=== PATIENT | female | born 1955 | race Caucasian/White ===

== ENCOUNTER 2024-01-25 04:33 | Inpatient (IN) | payer MEDICARE, SELFPAY ==
[2024-01-25] VITALS (14 sets, daily range): BP systolic 145–197; BP diastolic 68–94; PULSE 73–99; RESP 12–21; TEMP 36.3–37.2; O2SAT 87–96; BMI 24.9; BMI 25.2
--- NOTE | ~2024-01-25 | XR_ITS ---
EXAMINATION: XR CHEST CLINICAL INFORMATION: Shortness of breath. COMPARISON: None available. TECHNIQUE: Frontal view of the chest was obtained. FINDINGS: The cardiomediastinal silhouette is stable. There is no focal lung consolidation or pleural effusion. The bony structures and soft tissues are unremarkable. XR/XR chest 1V IMPRESSION: No acute cardiopulmonary disease.
--- NOTE | 2024-01-25 04:53 | ECG_ITS ---
Test Reason : SOB Blood Pressure : / mmHG Vent. Rate : 088 BPM Atrial Rate : 088 BPM P-R Int : 148 ms QRS Dur : 090 ms QT Int : 514 ms P-R-T Axes : 078 014 045 degrees QTc Int : 621 ms Normal sinus rhythm ST depression consider ischemia Abnormal ECG No previous ECGs available Referred By: Generic ED Physician Electronically Signed By:ADRIA PRIEST MD
--- NOTE | 2024-01-25 04:56 | ED_ITS ---
HPI - Asthma General Chief Complaint: Asthma Stated Complaint: Asthma Attack Time Seen by Provider: 01/25/24 04:55 Source: patient Mode of arrival: ambulatory Limitations: no limitations History of Present Illness ED Provider: dr azul HPI Narrative: Patient history of asthma comes here for increased shortness of breath chills for last 5 days using her inhaler without much relief on arrival patient is saturating 87% at room air improved to 94% on 4 L patient with coughing with mucopurulent phlegm low-grade fever off with chills clear nasal discharge no chest pain Related Data Previous Rx's ?Medication ?Instructions ?Recorded albuterol sulfate 90 mcg/actuation 2 puff inhalation Q4-6H PRN 01/25/24 aerosol inhaler (ProAir HFA) shortness of breath or wheezing #8.5 grams benzonatate 200 mg capsule 200 mg PO TID PRN cough #30 caps 01/25/24 prednisone 20 mg tablet 40 mg (2 x 20 mg) PO DAILY #10 tabs 01/25/24 Allergies Allergy/AdvReac Type Severity Reaction Status Date / Time Seasonal Allergies Allergy Shortness Verified 01/25/24 04:47 of Breath Review of Systems 2 Review of Systems: Yes all other systems are reviewed and are negative PMFSH Social History Social History Smoked in Last 30 Days: No Use of substances other than those prescribed or required for medical reasons: Yes Substance Use Type: Marijuana Substance Use Frequency: Socially Advance Directives: No Do you have a plan to hurt others: No Plan Physical Exam 2 Vital Signs: Vital Signs: Last Vital Signs Temp 98.9 F 01/25/24 04:45 Pulse 88 01/25/24 06:03 Resp 15 01/25/24 06:03 BP 173/76 H 01/25/24 06:03 Pulse Ox 93 01/25/24 06:03 O2 Del Method Nasal Cannula 01/25/24 06:03 O2 Flow Rate 4 01/25/24 06:03 BMI result Body Mass Index 24.9 Appearance: Alert. Oriented X3. Moderate respiratory distress Eyes: No pallor with icterus ENT: Pharynx normal. Oral Mucosa moist Neck: Normal inspection. Neck supple. CVS: Normal heart rate and rhythm. Pulses normal. Respiratory: Moderate respiratory distress with wheezing bilateral. Equal air entry bilateral, no crackles Abdomen: Soft and nontender. Bowel sounds are present, no mass palpable, no CVA tenderness Skin: Skin warm and dry. Normal skin color. Normal skin turgor. Extremities: No lower extremity edema. No calf tenderness Neuro: Oriented X 3. No motor deficit. Medications Administered Generic Name Dose Route Start Last Admin Trade Name Freq PRN Reason Stop Dose Admin Magnesium Sulfate 2 gm in 50 mls @ 25 mls/hr 01/25/24 05:36 01/25/24 05:47 Magnesium Sulfate/H2o IV 01/25/24 07:35 25 mls/hr ONCE ONE Administration Discontinued Medications Generic Name Dose Route Start Last Admin Trade Name Freq PRN Reason Stop Dose Admin Amlodipine Besylate 5 mg 01/25/24 05:28 01/25/24 05:32 Amlodipine Besylate 5 Mg Tablet PO 01/25/24 05:29 5 mg ONCE ONE Administration Protocol Albuterol Sulfate 2.5 mg/ 0 mg 01/25/24 05:12 01/25/24 05:29 Albuterol/Ipratropium 3 ml INHALE 01/25/24 05:13 5 dose ONCE ONE Administration Lisinopril 40 mg 01/25/24 05:28 01/25/24 05:32 Lisinopril 40 Mg Tablet PO 01/25/24 05:29 40 mg ONCE ONE Administration Protocol Methylprednisolone Sodium Succinate 125 mg 01/25/24 05:12 01/25/24 05:21 Methylprednisolone Sod Succ 125 Mg/2 Ml Vial IVPUSH 01/25/24 05:13 125 mg ONCE ONE Administration Potassium Bicarbonate 25 meq 01/25/24 05:36 01/25/24 05:47 Potassium Bicarbonate/Cit Ac 25 Meq Tablet.Eff PO 01/25/24 05:37 25 meq ONCE ONE Administration Medical Decision Making Medical Decision Making [facility] Narrative: Patient with asthma with allergies came hypoxic with wheezing improved after nebulizing treatment saturating 92% at room air will give her another treatment. Chest x-ray negative for infiltrate/pneumonia/pneumothorax no findings of CHF COVID influenza negative will give another breathing treatment likely patient will go home Dr. Anderson to dispo Differential Diagnosis Differential Diagnoses: The differential diagnosis associated with the presentation includes Asthma/bronchitis/pneumonia/pneumothorax/CHF Admission/Observation Consideration of admission/observation: Escalation of care including admission/observation considered Lab Data [facility] Lab Attestation statement: I reviewed the patient's lab results. 01/25/24 05:03 01/25/24 05:03 Labs: Lab Results 01/25/24 01/25/24 Range/Units 05:03 05:08 WBC 5.6 (4.8-10.8) X10*3/uL RBC 4.99 (4.20-5.50) X10*6/uL Hgb 14.7 (12.0-16.0) g/dl Hct 43.6 (37.0-47.0) % MCV 87.4 (80.0-98.0) fL MCH 29.5 (27.0-33.0) pg MCHC 33.7 (31.0-35.0) g/dl RDW 13.5 (11.0-16.0) % Plt Count 186 (160-400) X10*3/uL MPV 10.9 (9.4-12.3) fL Immature Gran % (Auto) 0.4 (0.0-0.4) % Neut % (Auto) 72.1 (45-73) % Lymph % (Auto) 16.8 L (20-40) % [place] % (Auto) 9.4 (2-11) % Eos % (Auto) 0.9 (0-4) % Baso % (Auto) 0.4 (0-2) % Lymph # (Auto) 1.0 L (1.2-4.9) X10*3/uL [place] # (Auto) 0.5 (0.1-1.2) X10*3/uL Eos # (Auto) 0.1 (0.0-0.4) X10*3/uL Baso # (Auto) 0.0 (0.0-0.2) X10*3/uL Abs Immat Gran (auto) 0.02 (0.00-0.03) X10*3/uL Absolute Neuts (auto) 4.1 (2.0-8.3) x10*3/uL Absolute Nucleated RBC 0.000 (0.0-0.012) X10*3/uL Nucleated RBC % (auto) 0.0 (0.0-0.2) /100WBC Sodium 143 (135-145) mmol/L Potassium 3.0 L (3.3-5.1) mmol/L Chloride 104 (96-108) mmol/L Carbon Dioxide 22 (22-29) mmol/L Anion Gap 20 (12-20) BUN 15 (9-16) mg/dL Creatinine 0.68 (0.5-1.4) mg/dL Estim Creat Clear Calc 76.9 Estimated GFR > 60 Random Glucose 164 H (60-115) mg/dL Calcium 9.5 (8.4-10.2) mg/dL Total Bilirubin 0.8 (0.0-1.0) mg/dL AST 23 (5-31) U/L ALT 24 (0-31) U/L Alkaline Phosphatase 105 (39-117) U/L Troponin I High Sens < 2.7 (<3.5-17.0) ng/L B-Natriuretic Peptide 48 (<100) pg/mL Total Protein 7.4 (6.5-8.0) g/dL Albumin 4.3 (3.5-5.0) g/dL COVID-19 (RIAN) Negative (Negative) COVID-19 Clin Com See Note Influenza Type A (MARLI) Negative (Negative) Influenza Type B (MARLI) Negative (Negative) Influenza A & B Note See Note Independent Interpretation I performed an independent interpretation of an: EKG and Plain X-Ray Interpretation: Normal sinus rhythm heart rate 88 beats per minute normal interval normal axis LVH no acute STT wave changes no acute ischemia Radiology Impression Discussion of test interpretation with radiology: I have reviewed the radiologist's reading. Discharge Plan Discharge Clinical Impression: Asthma with acute exacerbation, Acute hypoxemic respiratory failure Patient Disposition: Still a Patient Instructions: Asthma (ED), Hypoxia (ED) Additional Instructions: Take prednisone as prescribed continue to use your inhalers Report to the ER if not better Prescriptions: New benzonatate 200 mg capsule 200 mg PO TID PRN (Reason: cough) Qty: 30 0RF prednisone 20 mg tablet 40 mg PO DAILY Qty: 10 0RF albuterol sulfate [ProAir HFA] 90 mcg/actuation HFA aerosol inhaler 2 puff inhalation Q4-6H PRN (Reason: shortness of breath or wheezing) Qty: 8.5 0RF Print Language: Czech
[2024-01-25 05:09] LABS: MANUAL DIFF FLAG NO
[2024-01-25 05:18] LABS: Basophils Percent Auto 0.4 % (0-2); Eosinophils Absolute Auto 0.1 X10*3/uL (0.0-0.4); Eosinophils Percent Auto 0.9 % (0-4); Hematocrit 43.6 % (37.0-47.0); Hemoglobin 14.7 g/dl (12.0-16.0); Imm Gran Abs Auto 0.02 X10*3/uL (0.00-0.03); Imm Gran Pct Auto 0.4 % (0.0-0.4); Lymphocytes Percent Auto 16.8 % (20-40); Mean Corpuscular HGB Conc 33.7 g/dl (31.0-35.0); Mean Corpuscular Hemoglobin 29.5 pg (27.0-33.0); Mean Corpuscular Volume 87.4 fL (80.0-98.0); Mean Platelet Volume 10.9 fL (9.4-12.3); Monocytes Absolute Auto 0.5 X10*3/uL (0.1-1.2); Monocytes Percent Auto 9.4 % (2-11); Neutrophils Absolute Auto 4.1 x10*3/uL (2.0-8.3); Neutrophils Percent Auto 72.1 % (45-73); Platelet Count 186 X10*3/uL (160-400); Red Blood Count 4.99 X10*6/uL (4.20-5.50); Red Cell Distribution Width 13.5 % (11.0-16.0); White Blood Count 5.6 X10*3/uL (4.8-10.8)
[2024-01-25] MEDS: methylPREDNISolone Sod Succ 125 MG/2 ML VIAL IVPUSH (05:21)
[2024-01-25 05:27] LABS: Alanine Aminotransferase 24 U/L (0-31); Albumin Level 4.3 g/dL (3.5-5.0); Alkaline Phosphatase 105 U/L (39-117); Anion Gap 20 (12-20); Aspartate Amino Transferase 23 U/L (5-31); Bilirubin Total 0.8 mg/dL (0.0-1.0); Blood Urea Nitrogen 15 mg/dL (9-16); Calcium 9.5 mg/dL (8.4-10.2); Carbon Dioxide 22 mmol/L (22-29); Chloride 104 mmol/L (96-108); Creatinine Clr Calc Pharmacy 76.9; Estimated Glomerular Filt Rate > 60; Glucose Random 164 mg/dL (60-115); Sodium 143 mmol/L (135-145); Total Protein 7.4 g/dL (6.5-8.0)
[2024-01-25] MEDS: Albuterol Sulfate 2.5 MG, Albuterol/Iprat 2.5/0.5MG 3 ML 3 ML INHALE (05:29)
[2024-01-25 05:31] LABS: COVID-19 Test Negative (Negative); IDNOW Serial# 08D9AD1C; IDNOW Serial# 152EDE1D; Influenza A Negative (Negative); Influenza B2 Negative (Negative)
[2024-01-25] MEDS: lisinopriL 40 MG TABLET PO (05:32)
[2024-01-25] MEDS: amLODIPine Besylate 5 MG TABLET PO (05:32)
--- NOTE | 2024-01-25 05:37 | PC.NURSE ---
Patient presents to ED for evaluation of worsening shortness of breath, chill, intermittent productive cough of yellowish phlegm since 01/20/2024. Patient reports history of Asthma. She has been taking inhaler with no relief in symptoms. At ED O2 Sat 87% RA, O2 applied at 4 LPM NC with improvement noted, O2 Sat 94%, BP 184/90. Patient changed into a hospital attire, 20 G IV line established in R AC, labs drawn, swabs for COVID and Influenza complete. Patient placed on nurse monitoring, normal sinus rhythm, HR 80-90. BP 184-190/88-90. Dr. Jaramillo made aware. Patient medicated with Amlodipine 10 mg PO and Lisinopril 40mg PO. Patient medicated per NOV. RT at bedside. Call mckeon in patient's reach, plan of care ongoing.
[2024-01-25 05:39] LABS: B Type Natriuretic Peptide 48 pg/mL (<100); Troponin-I High Sensitivity < 2.7 ng/L (<3.5-17.0)
[2024-01-25] MEDS: Magnesium Sulfate/H2O 2 GM/50 ML PIGGYBACK IV (05:47)
[2024-01-25] MEDS: Potassium Bicarbonate/Cit AC 25 MEQ TABLET.EFF PO (05:47)
[2024-01-25] MEDS: Albuterol Sulfate (0.083%) 2.5 MG/3 ML VIAL.NEB 5 MG INHALE (07:20)
[2024-01-25 09:24] LABS: VBG Base Excess 1.5 mmol/L; VBG HCO3 25 mmol/L (22-26); VBG pCO2 38 mmHg; VBG pH 7.42 (7.32-7.43); VBG pO2 61 mmHg
[2024-01-25 09:25] LABS: Venous Blood Gas Refer to POC result
[2024-01-25] MEDS: Potassium Chloride/H20 10 MEQ/100 ML PIGGYBACK 100 MEQ IV ×2 (09:33→11:03)
--- NOTE | 2024-01-25 10:08 | PHA.MEDREC ---
Pharmacy Consult ? Medication Reconciliation Pharmacy has completed the medication reconciliation.
[2024-01-25 10:50] LABS: Adenovirus PCR Not Detected (Not Detect.); Bordetella parapertussis PCR Not Detected (Not Detect.); Bordetella pertussis PCR Not Detected (Not Detect.); Chlamydia pneumoniae PCR Not Detected (Not Detect.); Coronavirus 229E PCR Not Detected (Not Detect.); Coronavirus HKU1 PCR Not Detected (Not Detect.); Coronavirus NL63 PCR Not Detected (Not Detect.); Coronavirus OC43 PCR Not Detected (Not Detect.); Human metapneumovirus PCR Not Detected (Not Detect.); Influenza A PCR Not Detected (Not Detect.); Influenza B PCR Not Detected (Not Detect.); Mycoplasma pneumoniae PCR Not Detected (Not Detect.); Parainfluenza 1 PCR Not Detected (Not Detect.); Parainfluenza 2 PCR Not Detected (Not Detect.); Parainfluenza 3 PCR Detected (Not Detect.); Parainfluenza 4 PCR Not Detected (Not Detect.); RSV PCR Not Detected (Not Detect.); Rhino/Enterovirus PCR Not Detected (Not Detect.)
--- NOTE | 2024-01-25 11:30 | P.HPHOSP_ITS ---
History of Present Illness Date of Service: 01/25/24 Chief Complaint: Shortness of breath 68-year-old female patient with past medical history significant for mild intermittent asthma, history of hypertension presented to [facility] due to symptoms of shortness of breath that started 5 days ago, initially patient developed symptoms of shortness of breath associated with runny nose, sneezing, later she developed chest tightness ,cough productive of light yellow sputum, associated with chills, she took her home inhalers with no relief in symptoms, therefore presented to emergency room where she was noted to have finger oximetry 87% on room air improved to 94% on 4 L patient treated aggressively in the emergency room with IV Solu Medrol, albuterol updraft, IV magnesium but since patient continued to be hypoxic and symptomatic therefore being admitted for continued monitoring and treatment of acute asthma exacerbation, chest x-ray showed no acute cardiopulmonary disease, influenza, COVID and RSV negative. Review of Systems 2 Review of Systems: General no headache, no dizziness , CVS no chest pain, no palpitation. Respiratory shortness of breath and cough Gastrointestinal no nausea no vomiting, no abdominal pain no urgency no frequency Skin no rash Musculoskeletal no pain All other system reviewed and negative PMFSH Pertinent family history: Father at age 62 due due to myocardial infarction Mother at age 87 due to old age No family history of breast cancer or colon cancer Social History Smoked in Last 30 Days: No Use of substances other than those prescribed or required for medical reasons: Yes Substance Use Type: Marijuana Substance Use Frequency: Socially Advance Directives: No Do you have a plan to hurt others: No Plan Meds Allergies Allergy/AdvReac Type Severity Reaction Status Date / Time Seasonal Allergies Allergy Shortness Verified 01/25/24 04:47 of Breath Active Medications: Current Medications Acetaminophen (Acetaminophen 325 Mg Tablet) 650 mg PO Q6H PRN PRN Reason: Pain, Mild (Pain Scale 1-3) Al Hydroxide/Mg Hydroxide (Magnesium Hydrox/Alum Hydrox 30 Ml Oral.Susp) 30 ml PO Q4H PRN PRN Reason: Heartburn/Nausea Albuterol/Ipratropium (Albuterol/Iprat 2.5/0.5mg 3 Ml Ampul.Neb) 3 ml INHALE RQ4H WHILE AWAKE LAMBERT Amlodipine Besylate (Amlodipine Besylate 5 Mg Tablet) 5 mg PO DAILY COUNT INCLUDES THE [facility]; Protocol Atorvastatin Calcium (Atorvastatin Calcium 10 Mg Tablet) 10 mg PO BEDTIME COUNT INCLUDES THE [facility] Docusate Sodium (Docusate Sodium 100 Mg Capsule) 100 mg PO DAILY PRN PRN Reason: Constipation Guaifenesin/Dextromethorphan (Guaifenesin Dm 100/10/5 Ml 5 Ml Syrup) 10 ml PO Q6H PRN PRN Reason: Cough Lisinopril (Lisinopril 40 Mg Tablet) 40 mg PO DAILY COUNT INCLUDES THE [facility]; Protocol Loratadine (Loratadine 10 Mg Tablet) 10 mg PO DAILY COUNT INCLUDES THE [facility] Melatonin (Melatonin 3 Mg Tablet) 3 mg PO BEDTIME PRN PRN Reason: Insomnia Methylprednisolone Sodium Succinate (Methylprednisolone Sod Succ 40 Mg/Ml Vial) 40 mg IVPUSH Q12H LAMBERT Ondansetron HCl (Ondansetron Hcl 4 Mg/2 Ml Vial) 4 mg IVPUSH Q8H PRN PRN Reason: Nausea and Vomiting Sodium Chloride (0.9 % Sodium Chloride Flush 3 Ml Syringe) 3 ml IVFLUSH QSHIFT COUNT INCLUDES THE [facility] Vitamin D (Cholecalciferol (Vitamin D3) 25 Mcg Tablet) 50 mcg PO DAILY COUNT INCLUDES THE [facility] Home Medications ?Medication ?Instructions ?Recorded ?Confirmed ?Last Taken ?Type amlodipine 5 mg tablet 5 mg PO DAILY 01/25/24 01/25/24 01/24/24 History cholecalciferol (vitamin D3) 50 50 mcg PO DAILY 01/25/24 01/25/24 01/24/24 History mcg (2,000 unit) tablet (Vitamin D3) lisinopril 5 mg tablet 40 mg PO DAILY 01/25/24 01/25/24 01/24/24 History rosuvastatin 5 mg tablet 5 mg PO BEDTIME 01/25/24 01/25/24 01/24/24 History Physical Exam 2 Vital Signs and Narrative: Vital Signs: Last Vital Signs Temp 98.0 F 01/25/24 10:47 Pulse 78 01/25/24 10:47 Resp 14 01/25/24 10:47 BP 155/78 H 01/25/24 10:47 Pulse Ox 92 01/25/24 10:47 O2 Del Method Nasal Cannula 01/25/24 10:47 O2 Flow Rate 2 01/25/24 10:47 BMI result Body Mass Index 24.9 Const: Other: General awake alert x3, in no acute distress. Anicteric sclera Neck supple no JVD. CVS regular rate rhythm, Respiratory lungs bilateral expiratory wheeze, no use of accessory muscles Gastrointestinal abdomen soft, non tender, bowel sounds audible, Extremities no edema. Neuro non focal Skin no rash Psych appropriate affect Results Labs 01/25/24 05:03 01/25/24 05:03 Labs: Laboratory Results - last 24 hr 01/25/24 01/25/24 01/25/24 05:03 05:08 09:16 MCV 87.4 MCH 29.5 MCHC 33.7 RDW 13.5 Plt Count 186 MPV 10.9 Immature Gran % (Auto) 0.4 Neut % (Auto) 72.1 Lymph % (Auto) 16.8 L Sargent % (Auto) 9.4 Eos % (Auto) 0.9 Baso % (Auto) 0.4 Lymph # (Auto) 1.0 L S[place]ent # (Auto) 0.5 Eos # (Auto) 0.1 Baso # (Auto) 0.0 Abs Immat Gran (auto) 0.02 Absolute Neuts (auto) 4.1 Absolute Nucleated RBC 0.000 Nucleated RBC % (auto) 0.0 VBG pH 7.42 VBG pCO2 38 VBG pO2 61 VBG HCO3 25 VBG O2 Saturation 92.0 VBG Base Excess 1.5 Anion Gap 20 Estim Creat Clear Calc 76.9 Estimated GFR > 60 Random Glucose 164 H Calcium 9.5 Total Bilirubin 0.8 AST 23 ALT 24 Alkaline Phosphatase 105 Troponin I High Sens < 2.7 B-Natriuretic Peptide 48 Total Protein 7.4 Albumin 4.3 COVID-19 (RIAN) Negative COVID-19 Clin Com See Note Influenza Type A (MARLI) Negative Influenza Type B (MARLI) Negative Influenza A & B Note See Note Imaging Radiologist's Impressions: Impressions Chest X-Ray 01/25/24 05:07 IMPRESSION: No acute cardiopulmonary disease. Assessment and Plan (1) Acute hypoxemic respiratory failure: Status: Acute (2) Asthma with acute exacerbation: Status: Acute (3) Acute hypokalemia: Status: Acute Plan 64-year-old female patient with past medical history significant for mild intermittent asthma presented to [facility] due to symptoms of shortness of breath and cough for 4-5 days' duration not responding to home inhalers noted to be hypoxic in ED with finger oximetry 87% Acute hypoxic respiratory failure due to acute exacerbation of mild intermittent asthma Admitted to medical floor Likely due to allergies/follow respiratory viral panel/chest x-ray negative IV Solu-Medrol/DuoNeb scheduled and as needed Cough medication/Claritin Wean oxygen as tolerated not on home O2 Hypokalemia will replete and follow labs Hypertension stable blood pressure resume home medications, follow BP Full code Lovenox for DVT prophylaxis In my clinical judgment patient need to night inpatient hospitalization for management of acute hypoxic respiratory failure due to acute exacerbation of asthma requiring IV steroids updraft and oxygen treatment can not be provided in less acute setting. Quality Stroke Does the patient have a stroke diagnosis?: No VTE Prior VTE?: No VTE Risk Level:: Medical - moderate - high VTE Device Contraindication: Treatment Not Indicated VTE Drug Contraindication: N/A - Med Ordered
[2024-01-25] MEDS: Albuterol/Iprat 2.5/0.5MG 3 ML AMPUL.NEB INHALE ×3 (11:58→18:51)
[2024-01-25 12:00] LABS: SARS-CoV-2 PCR Not Detected (Not Detect.)
--- NOTE | 2024-01-25 12:21 | PC.NURSE ---
pt states that she already took her amlodipine this morning and does not want to take it now.
[2024-01-25] MEDS: Enoxaparin Sodium 40 MG/0.4 ML SYRINGE SUBCUT (12:25)
[2024-01-25] MEDS: Potassium Chloride ER 20 MEQ TAB.ER.PRT PO (12:25)
[2024-01-25] MEDS: Loratadine 10 MG TABLET PO (12:25)
[2024-01-25] MEDS: 0.9 % Sodium Chloride Flush 3 ML SYRINGE IVFLUSH ×2 (17:04→23:25)
[2024-01-25] MEDS: methylPREDNISolone Sod Succ 40 MG/ML VIAL IVPUSH (17:04)
[2024-01-25] MEDS: Atorvastatin Calcium 10 MG TABLET PO (22:01)
[2024-01-26] VITALS (7 sets, daily range): BP systolic 164–171; BP diastolic 77; PULSE 69–86; RESP 16–18; TEMP 36–36.6; O2SAT 92–97
[2024-01-26] MEDS: methylPREDNISolone Sod Succ 40 MG/ML VIAL IVPUSH (04:01)
[2024-01-26 07:34] LABS: Anion Gap 15 (12-20); Blood Urea Nitrogen 15 mg/dL (9-16); Calcium 9.6 mg/dL (8.4-10.2); Carbon Dioxide 25 mmol/L (22-29); Chloride 106 mmol/L (96-108); Creatinine Clr Calc Pharmacy 90.3; Estimated Glomerular Filt Rate > 60; Glucose Random 128 mg/dL (60-115); Sodium 142 mmol/L (135-145)
[2024-01-26] MEDS: Albuterol/Iprat 2.5/0.5MG 3 ML AMPUL.NEB INHALE ×2 (07:51→11:30)
[2024-01-26 07:53] LABS: Potassium 4.1 mmol/L (3.3-5.1)
[2024-01-26] MEDS: amLODIPine Besylate 5 MG TABLET PO (08:11)
[2024-01-26] MEDS: 0.9 % Sodium Chloride Flush 3 ML SYRINGE IVFLUSH (08:12)
[2024-01-26] MEDS: lisinopriL 40 MG TABLET PO (08:12)
[2024-01-26] MEDS: Cholecalciferol (Vitamin D3) 25 MCG TABLET 50 MCG PO (08:12)
--- NOTE | 2024-01-26 09:51 | MHC.CM.PN ---
Addendum entered by Renetta Euceda 01/26/24 10:21: Patient has scheduled an appointment in the [facility] office 03/05/24. Original Note: Patient dx Asthma lives by herself. She has recently moved to [place] from [facility]. She has been given the [facility] MD ken. She plans to schedule an appointment at the [facility] office today. She is independent with all functional mobility. She is discharged today to home self care. She will self transport her car is in the lot. She declined the offer to document a HCP.
--- NOTE | 2024-01-26 11:47 | PM.DS ---
DS: Providers Provider Date of Service: 01/26/24 Date of admission: 01/25/24 11:26 Primary care physician: Sydney Physician DS: Diagnosis Discharge Diagnosis (1) Acute hypoxemic respiratory failure: Status: Acute (2) Asthma with acute exacerbation: Status: Acute (3) Acute hypokalemia: Status: Acute DS: Summary Hospital Course Hospital Course: Date of Service: 01/25/24 Chief Complaint: Shortness of breath 68-year-old female patient with past medical history significant for mild intermittent asthma, history of hypertension presented to [facility] due to symptoms of shortness of breath that started 5 days ago, initially patient developed symptoms of shortness of breath associated with runny nose, sneezing, later she developed chest tightness ,cough productive of light yellow sputum, associated with chills, she took her home inhalers with no relief in symptoms, therefore presented to emergency room where she was noted to have finger oximetry 87% on room air improved to 94% on 4 L patient treated aggressively in the emergency room with IV Solu Medrol, albuterol updraft, IV magnesium but since patient continued to be hypoxic and symptomatic therefore being admitted for continued monitoring and treatment of acute asthma exacerbation, chest x-ray showed no acute cardiopulmonary disease, influenza, COVID and RSV negative. Hospital course: 64-year-old female patient with past medical history significant for htn,mild intermittent asthma presented to [facility] due to symptoms of shortness of breath and cough for 4-5 days' duration not responding to home inhalers, noted to be hypoxic in ED with finger oximetry 87%, admitted to medical floor with a diagnosis of Acute hypoxic respiratory failure due to acute exacerbation of mild intermittent asthma, likely exacerbated by allergies, chest x-ray showed no infiltrate, treated IV steroids, DuoNeb scheduled and as needed, cough medication and Claritin, patient responded rapidly to above treatment, patient is feeling significantly better with no further hypoxia, and no shortness of breath ,respiratory viral panel returned positive for parainfluenza virus, likely contributing to asthma exacerbation, since patient is hemodynamically stable she is being discharged home on short course of prednisone, cough medication, Claritin 10 mg daily and recommend to use as needed albuterol inhaler. Hypokalemia repleted and normalized Hypertension stable blood pressure resume home medications, lisinopril 40 mg and Norvasc 5 mg , prescription sent to her pharmacy. Time Attestation Discharge Coordination Time (in mins): 35 Quality: Safe Use of Opioids Does Pt have an Active Cancer Diagnosis on the Problem List?: No Quality: Stroke Does the patient have a stroke diagnosis?: No Physical Exam Vital Signs: Vital Signs: Last Vital Signs Temp 97.1 F 01/26/24 08:00 Pulse 86 01/26/24 11:31 Resp 16 01/26/24 11:31 BP 171/77 H 01/26/24 08:12 Pulse Ox 94 01/26/24 08:00 O2 Del Method Room Air 01/26/24 08:00 O2 Flow Rate 2 01/26/24 07:34 BMI result Body Mass Index 25.2 Const: Other: General awake alert x3, in no acute distress. Anicteric sclera Neck supple no JVD. CVS regular rate rhythm, Respiratory lungs clear to auscultation, no wheeze, no use of accessory muscles Gastrointestinal abdomen soft, non tender, bowel sounds audible, Extremities no edema. Neuro non focal Skin no rash Psych appropriate affect DS: Data Data Completed and Pending Labs on day of discharge: Laboratory Results - last 24 hr 01/25/24 01/26/24 07:45 05:38 Hold Purple Top SEE NOTE Sodium 142 Potassium 4.1 D Chloride 106 Carbon Dioxide 25 Anion Gap 15 BUN 15 Creatinine 0.58 Estim Creat Clear Calc 90.3 Estimated GFR > 60 Random Glucose 128 H Calcium 9.6 Respiratory Panel [place] See Note Adenovirus (Rapid PCR) Not Detected B.pert (TEM-PCR) Not Detected B.parapertussis DNA PCR Not Detected C. pneumoniae DNA (PCR) Not Detected Coronavirus OC43 (PCR) Not Detected Coronavirus HKU1 (PCR) Not Detected Coronavirus 229E (PCR) Not Detected Coronavirus NL63 (PCR) Not Detected Human Metapneumovir PCR Not Detected Influenza A (RT-PCR) Not Detected Influenza B (RT-PCR) Not Detected M. pneumoniae (PCR) Not Detected Parainfluenza 1 (PCR) Not Detected Parainfluenza 2 (PCR) Not Detected Parainfluenza 3 (PCR) Detected A Parainfluenza 4 (PCR) Not Detected RSV (PCR) Not Detected Entero/Rhino (PCR) Not Detected SARS-CoV-2 RNA (RT-PCR) Not Detected Discharge Plan Discharge Anticipated Discharge Date/Time: 01/26/24 11:21 Patient Disposition: Home, Self-Care Discharge Diagnosis: Acute hypoxic respiratory failure due to exacerbation of mild intermittent asthma exacerbation Parainfluenza viral Referrals: [facility] [Other] - 1 Week (New PCP appointment 03/05/24) Discharge Medications: New benzonatate 200 mg capsule 200 mg PO TID PRN (Reason: cough) Qty: 30 0RF albuterol sulfate [ProAir HFA] 90 mcg/actuation HFA aerosol inhaler 2 puff inhalation Q4-6H PRN (Reason: shortness of breath or wheezing) Qty: 8.5 0RF loratadine 10 mg Tablet 10 mg PO DAILY Qty: 90 0RF prednisone 20 mg tablet 20 mg PO DAILY Qty: 5 0RF Continued cholecalciferol (vitamin D3) [Vitamin D3] 50 mcg (2,000 unit) Tablet 50 mcg PO DAILY amlodipine 5 mg Tablet 5 mg PO DAILY Qty: 90 0RF lisinopril 5 mg Tablet 40 mg PO DAILY Qty: 90 0RF rosuvastatin 5 mg Tablet 5 mg PO BEDTIME Qty: 90 0RF Discharge Orders: Discharge Order (Routine); Ordered 01/26/24 Ordered By: Sriram Mon Diet: Advance to usual diet Activity on Discharge: As tolerated Stand Alone Forms: Patient Portal Discharge page Print Language: Belarusian Activity Restrictions/Additional Instructions: Take prednisone as prescribed continue to use your inhalers Care Plan Goals: Take Claritin 1 tablet daily Use albuterol 2 puff inhaler q.4 hours with episodes of shortness of breath Take prednisone 20 mg tablet with food for 5 days Health Concerns: Hypertension/hyperlipidemia resume home medication Plan of Treatment: Follow-up with primary care physician call for appointment Assessment: As above Patient Instructions: Asthma (ED), Hypoxia (ED)
== END 2024-01-26 12:42 | disposition home or self-care (01) | DRG 202 ==
LOC: HO.ED 09:38 → HO.EDOVER 11:30 → HO.S3 22:16
PROVIDERS: Internal Medicine; Admitting Provider Hospitalist; Emergency Provider Emergency Medicine; Visit Provider Hospitalist
DX: J45.21 Mild intermittent asthma with (acute) exacerbation (principal); J96.01 Acute respiratory failure with hypoxia; E87.6 Hypokalemia; I10 Essential (primary) hypertension; B34.8 Other viral infections of unspecified site; Z20.822 Contact with and (suspected) exposure to COVID-19; Z79.899 Other long term (current) drug therapy
CPT/HCPCS: 36415; 71045; 80048; 80053; 82803; 83880; 84484; 85025; 87502; 87633; 87635; 93005; 94640; 99285; J1650; J2919; J3475; J3480

== ENCOUNTER → 2024-01-25 04:53 | Outpatient (BNV) | payer MEDICARE, SELFPAY | PROVIDERS: Admitting Provider Hospitalist; Emergency Provider Emergency Medicine; Visit Provider Internal Medicine Cardiovascular Disease | DX: R06.02 Shortness of breath (principal); R94.31 Abnormal electrocardiogram [ECG] [EKG] | CPT/HCPCS: 93010 ==

== ENCOUNTER → 2024-01-25 11:26 | Outpatient (BNV) | payer MEDICARE, SELFPAY | PROVIDERS: Admitting Provider Hospitalist; Emergency Provider Emergency Medicine; Visit Provider Hospitalist | DX: J96.01 Acute respiratory failure with hypoxia (principal); J45.901 Unspecified asthma with (acute) exacerbation; E87.6 Hypokalemia | CPT/HCPCS: 99223; 99239 ==

== ENCOUNTER 2024-03-05 09:08 | Outpatient (AMB) | payer MEDICARE, SELFPAY ==
--- NOTE | 2024-03-05 09:20 | A.OFFPC_ITS ---
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 Intake Note: New patient visit Cop Examiner Required: No Allergies Seasonal Allergies Allergy (Verified 03/05/24 09:16) Shortness of Breath Tobacco use date assessed: 03/05/24 Fall risk assessment: No Falls in past year Last assessed Fall Risk: 03/05/24 Dental Screening Dental Screen Date: 03/05/24 Did you have a dental visit in the last 12 months?: No Did you have a dental problem in the last 6 months where you did not have access to dental care?: No Was dental information given to patient?: Yes HPI HPI Comments History of Present Illness Details This is a 68-year-old female with a past medical history of hypercholesterolemia, hypertension, depression, vitamin-D deficiency and mild intermittent asthma presenting to [facility] care. She moved from [place] to [facility] last year in May. She relocated after her daughter moved here. She is working as a hospitality workers. Hypertension-treated with amlodipine 5 mg and lisinopril 40 mg daily. Blood pressure today is 134/70 in office. She had a blood pressure cuff at home. She does not drink caffeine. She follows a low-sodium, healthy diet. Nonsmoker. Hyperlipidemia-taking rosuvastatin 5 mg. Due for labs. Vitamin-D deficiency-taking daily supplement. She has never had a bone density test. This is ordered. Mild intermittent asthma-hospitalized in January at [facility] [place] when she presented with an asthma exacerbation this year. It was her 1st exacerbation in 10 years. She has never been hospitalized for asthma before. She attributed it to being sick (tested positive for parainfluenza virus) and allergy symptoms. Since then she takes Claritin 10 mg daily. States she has not required her rescue inhaler at all since this exacerbation. Denies rhinitis symptoms. Depression-patient says she has a longstanding history of this, but she is able to cope with it by talking to friends and seeking support from relatives. She says the move has been stressful and difficult. She is not interested in medication for this or referrals. Patient says she is due for her mammogram. This is ordered. She had a negative Cologuard test last year. Patient said she was a ?non vaxxer until COVID-19. She was vaccinated, and she got COVID 19, and she did not require hospitalization. She has thought about getting the pneumonia vaccine, and she receives reminders from [employer], but she has not made a decision about it yet. She has a heart murmur on exam. Patient says this has never been told this. She had an EKG done in January this year while hospitalized. She denies chest pain, shortness of breath, cough or leg swelling. ROS: Constitutional: No unexplained weight loss, fever, chills or night sweats. Eyes: No vision changes, blurry vision, double vision, eye pain, eye redness, eye discharge. ENT: No hearing loss, sneezing, congestion, runny nose or sore throat. Respiratory: No shortness of breath, cough or sputum production. Cardiovascular: No chest pain, chest pressure or chest discomfort. No palpitations or pedal edema. Gastrointestinal: No anorexia, nausea, vomiting or diarrhea. No abdominal pain or blood in stool. Neurologic: No headache, dizziness, syncope Psychiatric: see HPI Physical exam: Constitutional: Alert, in no distress. Eyes: Pupils are equal, round and reactive to light. Extraocular muscles intact. Neck: Supple, Full range of motion. No lymphadenopathy. Respiratory: Clear to auscultation. Cardiovascular: S1 S2 regular. I/ systolic murmur. No carotid bruits. Extremities: Warm and well perfused. No clubbing, cyanosis or edema. [facility] Medical History (Updated 03/05/24 @ 13:32 by ADITYA Doyle) Mild persistent asthma in adult without complication Heart murmur Vitamin D deficiency Ovarian cyst Hypercholesteremia HTN (hypertension) Asthma Pure hypercholesterolemia Essential hypertension Depression Surgical History (Updated 03/05/24 @ 13:35 by ADITYA Doyle) History of lobectomy of lung History of removal of ovarian cyst History of cholecystectomy Family History (Updated 03/05/24 @ 09:52 by Katerina Bridges CMA) Mother HTN (hypertension) Father HTN (hypertension) Diabetes Cardiovascular disease Maternal Grandmother Breast cancer Other FH: mental illness Social History (Updated 03/05/24 @ 09:24 by Katerina Bridges CMA) Household Members: None Housing: House Do you presently have visiting nurse or other home services: No Patient Tobacco Use Status: Never used Tobacco e-Cigarette/Vaping Use: Never Used Second Hand Smoke Exposure: No Substance Use Type: Marijuana service: No Current occupational status: employed Current occupation: [employer] Current occupational exposures/hazards: Yes ([employer]) Cognitive needs: No Hearing needs: No Vision needs: Yes (glasses) Questionnaire PHQ-9 Over the last 2 weeks, how often have you been bothered by any of the following problems? 1. Little interest or pleasure in doing things: not at all 2. Feeling down, depressed, or hopeless: several days 3. Trouble falling or staying asleep, or sleeping too much: several days 4. Feeling tired or having little energy: more than half the days 5. Poor appetite or overeating: several days 6. Feeling bad about yourself - or that you are a failure or have let yourself or your family down: several days 7. Trouble concentrating on things, such as reading the newspaper or watching television: not at all 8. Moving or speaking so slowly that other people could have noticed. Or the opposite - being so fidgety or restless that you have been moving around a lot more than usual: not at all 9. Thoughts that you would be better off or of hurting yourself in some way: not at all Total score: 6 Depression Screening Interpretation: Positive Depression Screening Follow-up: Declines treatment Depression Screening Done: Yes 94605 - PHQ-9 Billing: Yes Source: Developed by Drs. Dmitry Pickard, Ernestina Isabel, Ceasar Brown and colleagues, with an educational elisabeth from [employer]. Thrive Questionnaire Date Thrive assessed: 03/05/24 I am a: Patient What is your living situation today?: I have a steady place to live Within the past 12 months, did the food you bought not last and you didn't have the money to get more?: Never true Within the past 12 months, did you worry whether your food would run out before you got money to buy more?: Never true Do you have trouble paying for medicines?: No Do you have trouble getting transportation to medical appointments?: No Do you have trouble paying your heating and electricity bill?: No Do you have trouble taking care of your child, family member or friend?: No Do you have trouble with day-to-day activities such as bathing, preparing meals, shopping, managing finances, etc.?: No Are you currently unemployed and looking for a job?: No Are you interested in more education?: No Please select the resources that you would like help with: None Currently or been in a relationship where the following occur: No concerns reported THRIVE Score: 0 AUDIT C Alcohol Use Questionnaire (AUDIT-C) 1. How often do you have a drink containing alcohol?: 4 or more times a week 2. How many drinks containing alcohol do you have on a typical day when you are drinking?: 1 or 2 3. How often do you have six or more drinks on one occasion?: Never Total Score: 4 HAYDEE-7 AMB Questionnaire HAYDEE-7 Date HAYDEE - 7 assessed: 03/05/24 Feeling nervous, anxious, or on edge: 3 = Nearly every day Not being able to stop or control worryin = More than half the days Worrying too much about different things: 2 = More than half the days Trouble relaxin = Nearly every day Being so restless that it is hard to sit still: 3 = Nearly every day Becoming easily annoyed or irritable: 0 = Not at all Feeling afraid as if something awful might happen: 2 = More than half the days Total HAYDEE-7 score (0-4 normal; 5-9 mild; 10-14 moderate; 15-21 severe): 15 Source: Developed by Drs. Dmitry Pickard, Ernestina Isabel, Ceasar Brown and colleagues, with an educational elisabeth from [employer]. HAYDEE-7 Assessment Billing HAYDEE-7 Assessment Tool: HAYDEE-7 Assessment 10395 Physical exam (Primary Care) Vital Signs: Last Vital Signs Temp 98 F 03/05/24 09:25 Pulse 67 03/05/24 09:25 Resp 12 03/05/24 09:25 BP 134/70 03/05/24 09:25 Pulse Ox 95 03/05/24 09:25 Oxygen Delivery Method Room Air 03/05/24 09:25 BMI result Body Mass Index 25.6 Tobacco/Smoking Status: Tobacco use Status Tobacco use date assessed 03/05/24 03/05/24 09:30 Patient Tobacco Use Status Never used Tobacco 03/05/24 09:30 e-Cigarette/Vaping Use Never Used 03/05/24 09:30 PHQ-9: PHQ-9 Score PHQ-9: Total score 6 03/05/24 10:18 Depression Screening Interpretation: Positive Depression Screening Follow-up: Declines treatment Thrive Assessment: Date of Thrive Assessment Date Thrive assessed 03/05/24 03/05/24 09:54 Currently or been in a relationship where the following occur: No concerns reported Assessment and Plan Assessment & Plan (1) Pure hypercholesterolemia: Code(s): E78.00 - Pure hypercholesterolemia, unspecified Plan: Recommended Mediterranean diet, cardiovascular exercise and continuing rosuvastatin. Check lipid profile. (2) Essential hypertension: Code(s): I10 - Essential (primary) hypertension Plan: Patient will track home readings and bring them to her follow up visit. Blood pressure actually good for in office reading today. Continue current medications, avoidance of caffeine and low-sodium diet. (3) Depression: Code(s): F32.A - Depression, unspecified Qualifiers: Depression Type: persistent depressive disorder Qualified Code(s): F34.1 - Dysthymic disorder Plan: Patient declines medications or referral to psychologist or psychiatrist. She feels well supported. She will monitor her symptoms and contact the office as needed. (4) Heart murmur: Code(s): R01.1 - Cardiac murmur, unspecified Plan: Baseline echocardiogram ordered for evaluation. (5) Vitamin D deficiency: Code(s): E55.9 - Vitamin D deficiency, unspecified Plan: Check vitamin-D level. Continue supplement. (6) Mild persistent asthma in adult without complication: Code(s): J45.30 - Mild persistent asthma, uncomplicated Plan: Monitor for recurrent symptoms and frequency of his exacerbations. Continue Claritin 10 mg daily and albuterol 2 puffs every 4 hours as needed for coughing, wheezing and shortness of breath. Orders: Orders Basic Metabolic Panel Today E55.9 - Vitamin D deficiency, unspecified, E78.00 - Pure hypercholesterolemia, unspecified, I10 - Essential (primary) hypertension MM screening mammo BI Today Z12.31 - Encounter for screening mammogram for malignant neoplasm of breast XR DEXA axial skeleton Today N95.1 - Menopausal and female climacteric states Lipid Panel Today E55.9 - Vitamin D deficiency, unspecified, E78.00 - Pure hypercholesterolemia, unspecified, I10 - Essential (primary) hypertension Vitamin D 1,25 dihydroxy Today E55.9 - Vitamin D deficiency, unspecified, E78.00 - Pure hypercholesterolemia, unspecified, I10 - Essential (primary) hy pertension CA echo transthoracic complete Today I10 - Essential (primary) hypertension, R01.1 - Cardiac murmur, unspecified Medications: New lisinopril 40 mg PO DAILY 90 days 90 tabs 3RF Changed From amlodipine 5 mg PO DAILY 90 tabs 0RF To amlodipine 5 mg PO DAILY 90 days 90 tabs 3RF Refilled rosuvastatin 5 mg PO BEDTIME 90 tabs 3RF loratadine 10 mg PO DAILY 90 tabs 3RF Discontinued benzonatate Discontinued Reason: Doctor's Order 200 mg PO TID PRN 30 caps 0RF cough prednisone Discontinued Reason: Doctor's Order 20 mg PO DAILY 5 tabs 0RF lisinopril Discontinued Reason: Doctor's Order 40 mg (8 x 5 mg) PO DAILY 90 tabs 0RF Coding Level of Care Code New Pt Level 4 (77791) Complex EM visit Add On G2211 Diagnoses Pure hypercholesterolemia E78.00 Essential hypertension I10 Persistent depressive disorder F34.1 Depression Type: persistent depressive disorder Heart murmur R01.1 Vitamin D deficiency E55.9 Mild persistent asthma in adult without complication J45.30 Additional Codes HAYDEE-7 Assessment Billing - HAYDEE-7 Assessment Tool: HAYDEE-7 Assessment [id number] ([id number])
[2024-03-05 09:25] VITALS: BP 134/70; PULSE 67; RESP 12; TEMP 36.6; O2SAT 95; BMI 25.6
== END 2024-03-05 10:14 | disposition home or self-care (01) ==
LOC: HO.HMGFM 09:08
PROVIDERS: PCP Physician Assistant Medical; Visit Provider Physician Assistant Medical
DX: E78.00 Pure hypercholesterolemia, unspecified (principal); I10 Essential (primary) hypertension; F34.1 Dysthymic disorder; R01.1 Cardiac murmur, unspecified; E55.9 Vitamin D deficiency, unspecified; J45.30 Mild persistent asthma, uncomplicated
CPT/HCPCS: 99204; G2211

== ENCOUNTER 2024-08-05 14:29 | Outpatient (AMB) | payer MEDICARE, SELFPAY ==
--- NOTE | 2024-08-05 15:19 | MHC.PC.OV ---
Vital Signs 08/05/24 15:24 08/05/24 15:32 Height 5 ft 0.73 in Weight 161 lb 2 oz BMI 30.7 BP 152/70 H 142/62 H Blood Pressure Location Rt brachial Rt brachial Position Sitting Sitting Pulse 57 Pulse Source Pulse Oximeter Pulse Oximetry (%) 98 Oxygen Delivery Method Room Air Intake Visit Reasons: med follow up HTN Intake Note: Follow up htn. Diarrhea, vomiting for the last week. Allergies Seasonal Allergies Allergy (Verified 08/05/24 15:25) Shortness of Breath Tobacco use date assessed: 03/05/24 Dental Screening Dental Screen Date: 03/05/24 HPI HPI Comments History of Present Illness Details This is a 69-year-old female with a past medical history of hypercholesterolemia, hypertension, depression, vitamin-D deficiency and mild intermittent asthma presenting for follow up. It is her 2nd visit with me. She moved from [place] to [facility] in 05/24/2023.. She relocated after her daughter moved here. 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 Hypertension-treated with amlodipine 5 mg and lisinopril 40 mg daily. Her blood pressure today is mildly elevated. She attributes this to missing multiple days of her medications within the past week due to having this stomach bug. She is still recovering. She had a blood pressure cuff at home. She does not drink caffeine. She follows a low-sodium, healthy diet. Nonsmoker. Last week she developed fevers, chills, vomiting and diarrhea. She treated her symptoms supportively at home. She is doing better. All of the symptoms resolved. She still feels tired and is recovering, but she is doing better and denies abdominal pain. Hyperlipidemia-taking rosuvastatin 5 mg. Due for lab work. Vitamin-D deficiency-taking daily supplement. She has never had a bone density test. I ordered it at her last appointment, but she is waiting until her supplemental insurance starts in 09/2024. Mild intermittent asthma-[place] [facility] [place] presented with an asthma exacerbation this year. It was her 1st exacerbation in 10 years. She has never been hospitalized for asthma before. She attributed it to being sick (tested positive for parainfluenza virus) and allergy symptoms. Since then she takes Claritin 10 mg daily. States she has not required her rescue inhaler at all since this exacerbation. Denies rhinitis symptoms. Depression-patient says she has a longstanding history of this, but she is able to cope with it by talking to friends and seeking support from relatives. She is not interested in medication for this or referrals. Patient says she is due for her mammogram. This is ordered, but she is waiting until 2024 for insurance reasons. She had a negative Cologuard test in 2022. Patient said she was a ?non vaxxer until COVID-19. She was vaccinated, and she got COVID 19, and she did not require hospitalization. She has thought about getting the pneumonia vaccine, and she receives reminders from [employer], but she has not made a decision about it yet. She received the COVID-19 booster and flu vaccine this fall. The RSV vaccine was going to be a 300 dollars, so she is going to see if her new insurance in September covers it. She had a heart murmur on her exam in March. I ordered an echocardiogram, but she is waiting until the new year to do this for insurance. She denies chest pain, shortness of breath, cough or leg swelling. ROS: Constitutional: No unexplained weight loss, fever, chills or night sweats. Eyes: No vision changes, blurry vision, double vision, eye pain, eye redness, eye discharge. ENT: No hearing loss, sneezing, congestion, runny nose or sore throat. Respiratory: No shortness of breath, cough or sputum production. Cardiovascular: No chest pain, chest pressure or chest discomfort. No palpitations or pedal edema. Gastrointestinal: No blood in stool or abdominal pain. See HPI. Neurologic: No headache, dizziness, syncope Physical exam: Constitutional: Alert, in no distress. Eyes: Pupils are equal, round and reactive to light. Extraocular muscles intact. Neck: Supple, Full range of motion. No lymphadenopathy. Respiratory: Clear to auscultation. Cardiovascular: S1 S2 regular. I/ systolic murmur. No carotid bruits. Abdomen: Soft, nontender, no palpable masses. Normoactive bowel sounds in 4 quadrants. Extremities: Warm and well perfused. No clubbing, cyanosis or edema. [facility] Medical History (Updated 03/05/24 @ 13:32 by ADITYA Doyle) Mild persistent asthma in adult without complication Heart murmur Vitamin D deficiency Ovarian cyst Hypercholesteremia HTN (hypertension) Asthma Pure hypercholesterolemia Essential hypertension Depression Surgical History (Updated 03/05/24 @ 13:35 by ADITYA Doyle) History of lobectomy of lung History of removal of ovarian cyst History of cholecystectomy Family History (Updated 03/05/24 @ 09:52 by Katerina Bridges CMA) Mother HTN (hypertension) Father HTN (hypertension) Diabetes Cardiovascular disease Maternal Grandmother Breast cancer Other FH: mental illness Social History (Updated 03/05/24 @ 09:24 by Katerina Bridges CMA) Household Members: None Housing: House Do you presently have visiting nurse or other home services: No Patient Tobacco Use Status: Never used Tobacco e-Cigarette/Vaping Use: Never Used Second Hand Smoke Exposure: No Substance Use Type: Marijuana service: No Current occupational status: employed Current occupation: [employer] Current occupational exposures/hazards: Yes ([employer]) Cognitive needs: No Hearing needs: No Vision needs: Yes (glasses) Questionnaire PHQ-9 Over the last 2 weeks, how often have you been bothered by any of the following problems? 1. Little interest or pleasure in doing things: nearly every day 2. Feeling down, depressed, or hopeless: several days 3. Trouble falling or staying asleep, or sleeping too much: several days 4. Feeling tired or having little energy: several days 5. Poor appetite or overeating: several days 6. Feeling bad about yourself - or that you are a failure or have let yourself or your family down: not at all 7. Trouble concentrating on things, such as reading the newspaper or watching television: not at all 8. Moving or speaking so slowly that other people could have noticed. Or the opposite - being so fidgety or restless that you have been moving around a lot more than usual: not at all 9. Thoughts that you would be better off or of hurting yourself in some way: not at all Total score: 7 Source: Developed by Drs. Dmitry Pickard, Ernestina Isabel, Ceasar Brown and colleagues, with an educational elisabeth from [employer]. Thrive Questionnaire Date Thrive assessed: 07/29/24 I am a: Patient What is your living situation today?: I have a steady place to live Within the past 12 months, did the food you bought not last and you didn't have the money to get more?: Never true Within the past 12 months, did you worry whether your food would run out before you got money to buy more?: Never true Do you have trouble paying for medicines?: No Do you have trouble getting transportation to medical appointments?: No Do you have trouble paying your heating and electricity bill?: No Do you have trouble taking care of your child, family member or friend?: No Do you have trouble with day-to-day activities such as bathing, preparing meals, shopping, managing finances, etc.?: No Are you currently unemployed and looking for a job?: No Are you interested in more education?: No Please select the resources that you would like help with: None Currently or been in a relationship where the following occur: No concerns reported THRIVE Score: 0 AUDIT C Alcohol Use Questionnaire (AUDIT-C) 1. How often do you have a drink containing alcohol?: 2-3 times a week 2. How many drinks containing alcohol do you have on a typical day when you are drinking?: 1 or 2 3. How often do you have six or more drinks on one occasion?: Never Total Score: 3 HAYDEE-7 AMB Questionnaire HAYDEE-7 Date HAYDEE - 7 assessed: 03/05/24 Feeling nervous, anxious, or on edge: 0 = Not at all Not being able to stop or control worryin = Not at all Worrying too much about different things: 0 = Not at all Trouble relaxin = Several days Being so restless that it is hard to sit still: 0 = Not at all Becoming easily annoyed or irritable: 1 = Several days Feeling afraid as if something awful might happen: 1 = Several days Total HAYDEE-7 score (0-4 normal; 5-9 mild; 10-14 moderate; 15-21 severe): 3 Source: Developed by Drs. Dmitry Pickard, Ernestina Isabel, Ceasar Brown and colleagues, with an educational elisabeth from [employer]. Physical exam (Primary Care) Vital Signs: Last Vital Signs Pulse 57 08/05/24 15:24 BP 142/62 H 08/05/24 15:32 Pulse Ox 98 08/05/24 15:24 Oxygen Delivery Method Room Air 08/05/24 15:24 BMI result Body Mass Index 30.7 Tobacco/Smoking Status: Tobacco use Status Tobacco use date assessed 03/05/24 08/05/24 15:23 Patient Tobacco Use Status Never used Tobacco 08/05/24 15:23 e-Cigarette/Vaping Use Never Used 08/05/24 15:23 PHQ-9: PHQ-9 Score PHQ-9: Total score 7 08/05/24 15:23 Thrive Assessment: Date of Thrive Assessment Date Thrive assessed 07/29/24 08/05/24 15:23 Currently or been in a relationship where the following occur: No concerns reported Coding Level of Care Code Est Pt Level 4 (42500) Complex EM visit Add On G2211 Diagnoses Heart murmur R01.1 Vitamin D deficiency E55.9 Pure hypercholesterolemia E78.00 Essential hypertension I10 Assessment & Plan Assessment & Plan (1) Heart murmur: Code(s): R01.1 - Cardiac murmur, unspecified Category: Medical Plan: Ordered echocardiogram to be done in 2024 due to insurance change. (2) Vitamin D deficiency: Code(s): E55.9 - Vitamin D deficiency, unspecified Category: Medical Plan: Continue vitamin-D supplement and check vitamin-D level. (3) Pure hypercholesterolemia: Code(s): E78.00 - Pure hypercholesterolemia, unspecified Category: Medical Plan: Continue rosuvastatin. Check fasting lipid profile. Recommended Mediterranean diet. (4) Essential hypertension: Code(s): I10 - Essential (primary) hypertension Category: Medical Plan: Blood pressure may be elevated today due to her bout with gastroenteritis and missing multiple days of medications during the past week. Patient will monitor blood pressure at home and send me the readings in a few weeks over the patient portal. Continue lisinopril and amlodipine. Plan Follow up in 6 months for a physical exam. Orders: Orders Complete Blood Count no Diff Today E55.9 - Vitamin D deficiency, unspecified, E78.00 - Pure hypercholesterolemia, unspecified, I10 - Essential (primary) hypertension Comprehensive Met. Panel Today E55.9 - Vitamin D deficiency, unspecified, E78.00 - Pure hypercholesterolemia, unspecified, I10 - Essential (primary) hypertension
[2024-08-05 15:24] VITALS: BP 152/70; PULSE 57; O2SAT 98; BMI 30.7
[2024-08-05 15:32] VITALS: BP 142/62
== END 2024-08-05 15:52 | disposition home or self-care (01) ==
PROVIDERS: PCP Physician Assistant Medical; Visit Provider Physician Assistant Medical
DX: R01.1 Cardiac murmur, unspecified (principal); E55.9 Vitamin D deficiency, unspecified; E78.00 Pure hypercholesterolemia, unspecified; I10 Essential (primary) hypertension

== ENCOUNTER → 2024-08-05 14:29 | Outpatient (BNVA) | payer MEDICARE, SELFPAY | PROVIDERS: PCP Physician Assistant Medical; Visit Provider Physician Assistant Medical | DX: R01.1 Cardiac murmur, unspecified (principal); E55.9 Vitamin D deficiency, unspecified; E78.00 Pure hypercholesterolemia, unspecified; I10 Essential (primary) hypertension; Z79.899 Other long term (current) drug therapy | CPT/HCPCS: 96127; 99212 ==

== ENCOUNTER 2025-02-06 15:29 | Outpatient (REF) | payer MEDICARE, SELFPAY ==
[2025-02-06 17:47] LABS: Hematocrit 41.9 % (37.0-47.0); Hemoglobin 13.9 g/dl (12.0-16.0); Mean Corpuscular HGB Conc 33.2 g/dl (31.0-35.0); Mean Corpuscular Hemoglobin 29.3 pg (27.0-33.0); Mean Corpuscular Volume 88.2 fL (80.0-98.0); Mean Platelet Volume 11.6 fL (9.4-12.3); Platelet Count 246 X10*3/uL (160-400); Red Blood Count 4.75 X10*6/uL (4.20-5.50); Red Cell Distribution Width 13.8 % (11.0-16.0); White Blood Count 7.5 X10*3/uL (4.8-10.8)
[2025-02-06 18:09] LABS: Alanine Aminotransferase 26 U/L (0-31); Albumin Level 4.4 g/dL (3.5-5.0); Alkaline Phosphatase 129 U/L (39-117); Anion Gap 13 (12-20); Aspartate Amino Transferase 31 U/L (5-31); Bilirubin Total 0.9 mg/dL (0.0-1.0); Blood Urea Nitrogen 22 mg/dL (9-16); Calcium 9.8 mg/dL (8.4-10.2); Carbon Dioxide 27 mmol/L (22-29); Chloride 104 mmol/L (96-108); Cholesterol 197 mg/dL (<200); Estimated Glomerular Filt Rate > 60; Glucose Random 98 mg/dL (60-115); HDL Cholesterol 56 mg/dL (>40); LDL Cholesterol Calculated 125 mg/dL (<100); Potassium 3.9 mmol/L (3.3-5.1); Sodium 140 mmol/L (135-145); Total Protein 7.1 g/dL (6.5-8.0); Triglycerides 80 mg/dL (<150)
[2025-02-14 13:44] LABS: VITAMIN D (1,25 OH) D3 67 pg/mL; Vit D (1,25-Dihydroxy) Total 67 pg/mL (18-72); Vitamin D (1,25 OH) D2 <8 pg/mL
== END 2025-02-06 15:30 | disposition home or self-care (01) ==
LOC: HO.WFDLDS 15:29
PROVIDERS: Visit Provider Physician Assistant Medical
DX: Z00.00 Encounter for general adult medical examination without abnormal findings (principal); I10 Essential (primary) hypertension; E78.00 Pure hypercholesterolemia, unspecified; E55.9 Vitamin D deficiency, unspecified; R01.1 Cardiac murmur, unspecified; J45.30 Mild persistent asthma, uncomplicated
CPT/HCPCS: 36415; 80053; 80061; 82652; 85027; 96127; 99212

== ENCOUNTER 2025-02-06 15:41 | Outpatient (AMB) | payer MEDICARE, SELFPAY ==
--- NOTE | 2025-02-06 16:03 | MHC.PC.OV ---
Vital Signs 02/06/25 16:09 Height 5 ft 7 in Weight 159 lb 4 oz BMI 24.9 BP 126/68 Blood Pressure Location Rt brachial Position Sitting Pulse 72 Pulse Source Pulse Oximeter Temp 97.8 F Temp Source Temporal Artery Scan Pulse Oximetry (%) 98 Oxygen Delivery Method Room Air Intake Visit Reasons: physical Intake Note: Irene presents in the office today for her annual physical. Allergies Seasonal Allergies Allergy (Verified 02/06/25 16:06) Shortness of Breath Medication List - Last Reconciled 02/06/25 by ADITYA Doyle albuterol sulfate 90 mcg/actuation (ProAir HFA) 2 puffs inhalation Q4-6H PRN amlodipine 5 mg PO DAILY 90 days cholecalciferol (vitamin D3) 125 mcg PO DAILY lisinopril 40 mg PO DAILY 90 days loratadine 10 mg PO DAILY rosuvastatin 5 mg PO BEDTIME Tobacco use date assessed: 02/06/25 Dental Screening Dental Screen Date: 02/06/25 Did you have a dental visit in the last 12 months?: No Did you have a dental problem in the last 6 months where you did not have access to dental care?: No Was dental information given to patient?: No HPI HPI Comments History of Present Illness Details This is a 69-year-old female with a past medical history of hypercholesterolemia, hypertension, depression, vitamin-D deficiency and mild intermittent asthma presenting for the physical exam. She moved from [place] to [facility] in 05/24/2023. She relocated after her daughter moved here. 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 Hypertension-treated with amlodipine 5 mg and lisinopril 40 mg daily. Her blood pressure is normal. She walks daily for exercise to and from her job. She does not drink caffeine. She follows a low-sodium, healthy diet. Nonsmoker. Hyperlipidemia-taking rosuvastatin 5 mg. She had labs done today, but the results are pending. Vitamin-D deficiency-taking daily supplement. Patient reports she is overdue for a bone density exam, but she declined the test today. Mild intermittent asthma-hospitalized in January [address] [facility] when she presented with an asthma exacerbation this year. It was her 1st exacerbation in 10 years. She has never been hospitalized for asthma before. She attributed it to being sick (tested positive for parainfluenza virus) and allergy symptoms. Since then she takes Claritin 10 mg daily. States she has not required her rescue inhaler at all recently. Mammogram ordered. She had a negative Cologuard test in 2022. Declines annual gynecology exam. Patient said she was a ?non vaxxer until COVID-19. She was vaccinated, and she got COVID 19, and she did not require hospitalization. Recommended shingles vaccine, tetanus vaccine, RSV vaccine and pneumonia vaccine. Declined tetanus vaccine today. Advised patient the other vaccines are available at the pharmacy, and she is going to think about getting pneumonia vaccine and RSV vaccine. She had a heart murmur on her exam in March. I ordered an echocardiogram, but she is declining the tests. I explained that a heart murmur could be a sign of an underlying heart condition that could be more serious though some murmurs are benign. She denies chest pain, shortness of breath, cough or leg swelling. Ultimately she decides to defer this test unless she develops concerning symptoms. This is against my medical recommendation. ROS: Constitutional: No unexplained weight loss, fever, chills, fatigue or night sweats. Eyes: No vision changes, blurry vision, double vision, eye pain, eye redness, eye discharge. ENT: No hearing loss, sneezing, congestion, runny nose or sore throat. Respiratory: No shortness of breath, cough or sputum production. Cardiovascular: No chest pain, chest pressure or chest discomfort. No palpitations or pedal edema. Gastrointestinal: No anorexia, nausea, vomiting or diarrhea. No abdominal pain or blood in stool. Genitourinary: No dysuria, hematuria, urinary frequency. Neurologic: No headache, dizziness, syncope, unilateral weakness, ataxia, numbness or tingling in the extremities. Musculoskeletal: No muscle pain, back pain, joint pain or swelling. Hematologic/Lymphatics: No bleeding or bruising. No painful lymph nodes. Skin: No rash or itching. No changing moles or new moles. Endocrine: No cold or heat intolerance. No polyuria or polydipsia. Psychiatric: No depression or anxiety. No SI/HI. Physical exam: Constitutional: Alert, in no distress. Head: Normocephalic. Eyes: Pupils are equal, round and reactive to light. Extraocular muscles intact. Ear, Nose and Throat: Canals clear. TMs normal. Normal nasal mucosa. No nasal discharge. No oral lesions. Neck: Supple, Full range of motion. No lymphadenopathy. No palpable thyroid masses. Respiratory: Clear to auscultation. Cardiovascular: S1 S2 regular. No murmurs. No carotid bruits. Gastrointestinal: Abdomen soft, non-tender, non-distended. Normal bowel sounds. No palpable masses.. Neurologic: No focal neurological deficits. Symmetric patellar reflexes. Moves all extremities spontaneously. Sensation intact bilaterally. Skin: Numerous fuentes hemangiomas on the trunk. Musculoskeletal: No gross deformities. Normal range of motion. Extremities: Warm and well perfused. No clubbing, cyanosis or edema. Intact peripheral pulses.. Psychiatric: Normal mood and affect [facility] Medical History (Updated 02/06/25 @ 17:09 by ADITYA Doyle) Routine physical examination Mild persistent asthma in adult without complication Heart murmur Vitamin D deficiency Ovarian cyst Hypercholesteremia HTN (hypertension) Asthma Pure hypercholesterolemia Essential hypertension Depression Surgical History (Updated 03/05/24 @ 13:35 by ADITYA Doyle) History of lobectomy of lung History of removal of ovarian cyst History of cholecystectomy Family History Mother HTN (hypertension) Father HTN (hypertension) Diabetes Cardiovascular disease Maternal Grandmother Breast cancer Other FH: mental illness Social History (Updated 02/06/25 @ 16:08 by Taylor Torre MA) Household Members: None Housing: House Do you presently have visiting nurse or other home services: No Alcohol intake: current Alcohol intake frequency: holidays/special occasions only Alcohol type: wine Patient Tobacco Use Status: Never used Tobacco e-Cigarette/Vaping Use: Never Used Second Hand Smoke Exposure: No Substance Use Type: Marijuana service: No Current occupational status: employed 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 1. Little interest or pleasure in doing things: not at all 2. Feeling down, depressed, or hopeless: not at all 3. Trouble falling or staying asleep, or sleeping too much: not at all 4. Feeling tired or having little energy: not at all 5. Poor appetite or overeating: not at all 6. Feeling bad about yourself - or that you are a failure or have let yourself or your family down: not at all 7. Trouble concentrating on things, such as reading the newspaper or watching television: not at all 8. Moving or speaking so slowly that other people could have noticed. Or the opposite - being so fidgety or restless that you have been moving around a lot more than usual: not at all 9. Thoughts that you would be better off or of hurting yourself in some way: not at all Total score: 0 Depression Screening Interpretation: Negative Depression Screening Done: Yes 42423 - PHQ-9 Billing: Yes Source: Developed by Drs. Dmitry Pickard, Ernestina Isabel, Ceasar Brown and colleagues, with an educational elisabeth from [employer]. Thrive Questionnaire Date Thrive assessed: 02/06/25 I am a: Patient What is your living situation today?: I have a steady place to live Within the past 12 months, did the food you bought not last and you didn't have the money to get more?: Never true Within the past 12 months, did you worry whether your food would run out before you got money to buy more?: Never true Do you have trouble paying for medicines?: No Do you have trouble getting transportation to medical appointments?: No Do you have trouble paying your heating and electricity bill?: No Do you have trouble taking care of your child, family member or friend?: No Do you have trouble with day-to-day activities such as bathing, preparing meals, shopping, managing finances, etc.?: No Are you currently unemployed and looking for a job?: No Are you interested in more education?: No Please select the resources that you would like help with: None Currently or been in a relationship where the following occur: No concerns reported THRIVE Score: 0 AUDIT C Alcohol Use Questionnaire (AUDIT-C) 1. How often do you have a drink containing alcohol?: 4 or more times a week 2. How many drinks containing alcohol do you have on a typical day when you are drinking?: 1 or 2 3. How often do you have six or more drinks on one occasion?: Never Total Score: 4 Score Reviewed/Action Taken: No HAYDEE-7 AMB Questionnaire HAYDEE-7 Date HAYDEE - 7 assessed: 02/06/25 Feeling nervous, anxious, or on edge: 0 = Not at all Not being able to stop or control worryin = Not at all Worrying too much about different things: 0 = Not at all Trouble relaxin = Not at all Being so restless that it is hard to sit still: 0 = Not at all Becoming easily annoyed or irritable: 0 = Not at all Feeling afraid as if something awful might happen: 0 = Not at all Total HAYDEE-7 score (0-4 normal; 5-9 mild; 10-14 moderate; 15-21 severe): 0 Source: Developed by Drs. Dmitry Pickard, Ernestina Isabel, Ceasar Brown and colleagues, with an educational elisabeth from [employer]. HAYDEE-7 Assessment Billing HAYDEE-7 Assessment Tool: HAYDEE-7 Assessment 80747 Physical exam (Primary Care) Vital Signs: Last Vital Signs Temp 97.8 F 02/06/25 16:09 Pulse 72 02/06/25 16:09 BP 126/68 02/06/25 16:09 Pulse Ox 98 02/06/25 16:09 Oxygen Delivery Method Room Air 02/06/25 16:09 BMI result Body Mass Index 24.9 Tobacco/Smoking Status: Tobacco use Status Tobacco use date assessed 02/06/25 02/06/25 16:06 Patient Tobacco Use Status Never used Tobacco 02/06/25 16:08 e-Cigarette/Vaping Use Never Used 02/06/25 16:08 PHQ-9: PHQ-9 Score PHQ-9: Total score 0 02/06/25 16:06 Depression Screening Interpretation: Negative Thrive Assessment: Date of Thrive Assessment Date Thrive assessed 02/06/25 02/06/25 16:06 Currently or been in a relationship where the following occur: No concerns reported Coding Level of Care Code Est Pt Prev Care >65y(95367) Diagnoses Essential hypertension I10 Pure hypercholesterolemia E78.00 Vitamin D deficiency E55.9 Heart murmur R01.1 Mild persistent asthma in adult without complication J45.30 Routine physical examination Z00.00 Additional Codes HAYDEE-7 Assessment Billing - HAYDEE-7 Assessment Tool: HAYDEE-7 Assessment [id number] ([id number]) PHQ-9 - 78773 - PHQ-9 Billing: Yes ([id number]) Assessment & Plan Assessment & Plan (1) Essential hypertension: Code(s): I10 - Essential (primary) hypertension Category: Medical Plan: Well-controlled. Continue routine exercise, low-sodium diet and avoidance of caffeine. Continue current medications. (2) Pure hypercholesterolemia: Code(s): E78.00 - Pure hypercholesterolemia, unspecified Category: Medical Plan: Lab results pending. Continue rosuvastatin. Recommended Mediterranean diet. (3) Vitamin D deficiency: Code(s): E55.9 - Vitamin D deficiency, unspecified Category: Medical Plan: Per HPI declines bone density test. Lab work pending. (4) Heart murmur: Code(s): R01.1 - Cardiac murmur, unspecified Category: Medical Plan: Per HPI declines echocardiogram. Monitor. (5) Mild persistent asthma in adult without complication: Code(s): J45.30 - Mild persistent asthma, uncomplicated Category: Medical Plan: Stable. Continue Claritin for allergies and albuterol as needed. (6) Routine physical examination: Code(s): Z00.00 - Encounter for general adult medical examination without abnormal findings Category: Medical Plan: Patient is seen today for a routine physical. As part of this visit we reviewed the following issues, which are considered and essential part of preventative health in this age group: - Breast Cancer screening - Annual Belt Cutter exam - Screening for colon cancer - Blood pressure screening - Cholesterol screening - Osteoporosis prevention including calcium/vitamin D intake, weight bearing exercise & smoking cessation - Nutritional and exercise counseling - Counseling of injury prevention including fire prevention, smoke alarms and seat belt usage - Screening for depression - Education about skin cancer - Recommendations about immunizations - Recommendation of an eye exam - Screening for substance abuse Plan Follow up in 6 months for hypertension. Orders: Orders MM screening mammo BI Today Z12.31 - Encounter for screening mammogram for malignant neoplasm of breast
[2025-02-06 16:09] VITALS: BP 126/68; PULSE 72; TEMP 36.6; O2SAT 98; BMI 24.9
== END 2025-02-06 16:41 | disposition home or self-care (01) ==
LOC: HO.HMCFM 15:42
PROVIDERS: PCP Physician Assistant Medical; Visit Provider Physician Assistant Medical
DX: I10 Essential (primary) hypertension (principal); E78.00 Pure hypercholesterolemia, unspecified; E55.9 Vitamin D deficiency, unspecified; R01.1 Cardiac murmur, unspecified; J45.30 Mild persistent asthma, uncomplicated

== ENCOUNTER 2025-04-24 11:26 | Outpatient (REF) | payer MEDICARE, SELFPAY ==
--- NOTE | ~2025-04-24 | MM_ITS ---
EXAMINATION: MM SCREENING DIGITAL BREAST TOMOSYNTHESIS, BILATERAL CLINICAL INFORMATION: Screening. Asymptomatic. COMPARISON: Mammography: Comparison is made with available priors TECHNIQUE: Digital breast mammography with tomosynthesis is performed in both the craniocaudal and mediolateral oblique views along with computer-aided detection (CAD). FINDINGS: There are scattered areas of fibroglandular density (ACR BI-RADS breast composition Category b). There are no significant masses, abnormal calcifications, or other abnormalities. MM/MM tomosynthesis screening BI IMPRESSION: No mammographic evidence of malignancy. ASSESSMENT: BI-RADS BI-RADS 1 - Negative RECOMMENDATION: Routine annual mammography screening. 1 year F/U This examination should not preclude the clinical evaluation of a suspicious palpable abnormality. This patient's information was entered into a reminder system with a target due date for their next mammogram. Electronically signed by: Crystal Townsend DO 05/13/2025 04:44 PM EDT
== END 2025-04-24 11:27 | disposition home or self-care (01) ==
LOC: HO.MAMMO 11:26
PROVIDERS: PCP Physician Assistant Medical; Visit Provider Physician Assistant Medical
DX: Z12.31 Encounter for screening mammogram for malignant neoplasm of breast (principal)
CPT/HCPCS: 77063; 77067

== ENCOUNTER → 2025-04-24 11:45 | Outpatient (BNV) | payer MEDICARE, SELFPAY | PROVIDERS: PCP Physician Assistant Medical; Visit Provider Internal Medicine | DX: Z12.31 Encounter for screening mammogram for malignant neoplasm of breast (principal) | CPT/HCPCS: 77063; 77067 ==

== ENCOUNTER 2025-08-14 15:17 | Outpatient (AMB) | payer MEDICARE, SELFPAY ==
--- NOTE | 2025-08-14 15:29 | A.OFFPC_ITS ---
Vital Signs 08/14/25 15:36 Height 5 ft 7 in Weight 155 lb BMI 24.3 BP 130/70 Blood Pressure Location Rt brachial Position Sitting Respiration 15 Pulse 62 Pulse Source Pulse Oximeter Temp 97.8 F Temp Source Temporal Artery Scan Pulse Oximetry (%) 96 Oxygen Delivery Method Room Air Intake Visit Reasons: HTN review Intake Note: Irene presents in the office today for a follow up to hypertension. Client Service Executive Required: No Is last menstrual period known: Yes Post menopausal: No Patient : No Allergies Seasonal Allergies Allergy (Verified 08/14/25 15:34) Shortness of Breath Tobacco use date assessed: 08/14/25 Fall risk assessment: 1 Fall in past year Last assessed Fall Risk: 08/14/25 Dental Screening Dental Screen Date: 08/14/25 Did you have a dental visit in the last 12 months?: No Did you have a dental problem in the last 6 months where you did not have access to dental care?: No Was dental information given to patient?: Patient declined HPI HPI Comments History of Present Illness Details This is a 70-year-old female with a past medical history of hypercholesterolemia, hypertension, depression, vitamin-D deficiency and mild intermittent asthma presenting for follow up. Hypertension-treated with amlodipine 5 mg and lisinopril 40 mg daily. Her blood pressure is normal. She walks and bikes. She does not drink caffeine. She follows a low-sodium, healthy diet. Nonsmoker. Hyperlipidemia-taking rosuvastatin 10 mg. Vitamin-D deficiency-taking daily supplement. Patient reports she is overdue for a bone density exam, but she continues to decline this. She had a heart murmur on her exam in March. I ordered an echocardiogram, but she continues to decline this test. Flu and COVID-19 vaccine up dated this season at the pharmacy. ROS: Constitutional: No unexplained weight loss, fever, chills, fatigue or night sweats. Eyes: No vision changes Respiratory: No shortness of breath, cough or sputum production. Cardiovascular: No chest pain, chest pressure or chest discomfort. No palpitations or pedal edema. Gastrointestinal: No anorexia, nausea, vomiting or diarrhea. No abdominal pain or blood in stool. Neurologic: No headache, dizziness, syncope, unilateral weakness, ataxia, numbness or tingling in the extremities. Physical exam: Constitutional: Alert, in no distress. Neck: Supple, Full range of motion. No lymphadenopathy. No palpable thyroid masses. Respiratory: Clear to auscultation. Cardiovascular: S1 S2 regular. No murmurs. Extremities: Warm and well perfused. No clubbing, cyanosis or edema. [facility] Medical History (Updated 02/06/25 @ 17:09 by ADITYA Doyle) Routine physical examination Mild persistent asthma in adult without complication Heart murmur Vitamin D deficiency Ovarian cyst Hypercholesteremia HTN (hypertension) Asthma Pure hypercholesterolemia Essential hypertension Depression Surgical History (Updated 03/05/24 @ 13:35 by ADITYA Doyle) History of lobectomy of lung History of removal of ovarian cyst History of cholecystectomy Family History Mother HTN (hypertension) Father HTN (hypertension) Diabetes Cardiovascular disease Maternal Grandmother Breast cancer Other FH: mental illness Social History (Updated 08/14/25 @ 15:36 by Taylor Torre CMA) Household Members: None Housing: House Do you presently have visiting nurse or other home services: No Alcohol intake: current Alcohol intake frequency: holidays/special occasions only Alcohol type: wine Patient Tobacco Use Status: Never used Tobacco e-Cigarette/Vaping Use: Never Used Second Hand Smoke Exposure: No Use of substances other than those prescribed or required for medical reasons: Yes Substance Use Type: Marijuana Patient : No service: No Current occupational status: employed Current occupation: Lunch lady Current occupational exposures/hazards: Yes ([employer]rix) Cognitive needs: No Hearing needs: No Vision needs: Yes (glasses) Questionnaire Thrive Questionnaire Date Thrive assessed: 02/06/25 I am a: Patient What is your living situation today?: I have a steady place to live Within the past 12 months, did the food you bought not last and you didn't have the money to get more?: Never true Within the past 12 months, did you worry whether your food would run out before you got money to buy more?: Never true Do you have trouble paying for medicines?: No Do you have trouble getting transportation to medical appointments?: No Do you have trouble paying your heating and electricity bill?: No Do you have trouble taking care of your child, family member or friend?: No Do you have trouble with day-to-day activities such as bathing, preparing meals, shopping, managing finances, etc.?: No Are you currently unemployed and looking for a job?: No Are you interested in more education?: No Please select the resources that you would like help with: None Currently or been in a relationship where the following occur: No concerns reported THRIVE Score: 0 HAYDEE-7 AMB Questionnaire HAYDEE-7 Date HAYDEE - 7 assessed: 02/06/25 Source: Developed by Drs. Dmitry Pickard, Ernestina Isabel, Ceasar Brown and colleagues, with an educational elisabeth from [employer]. Physical exam (Primary Care) Vital Signs: Last Vital Signs Temp 97.8 F 08/14/25 15:36 Pulse 62 08/14/25 15:36 Resp 15 08/14/25 15:36 BP 130/70 08/14/25 15:36 Pulse Ox 96 08/14/25 15:36 Oxygen Delivery Method Room Air 08/14/25 15:36 BMI result Body Mass Index 24.3 Tobacco/Smoking Status: Tobacco use Status Tobacco use date assessed 08/14/25 08/14/25 15:39 Patient Tobacco Use Status Never used Tobacco 08/14/25 15:36 e-Cigarette/Vaping Use Never Used 08/14/25 15:36 Thrive Assessment: Date of Thrive Assessment Date Thrive assessed 02/06/25 08/14/25 15:31 Currently or been in a relationship where the following occur: No concerns reported Coding Level of Care Code Est Pt Level 4 (73643) Add On Problem Visit Only Diagnoses Essential hypertension I10 Pure hypercholesterolemia E78.00 Vitamin D deficiency E55.9 Heart murmur R01.1 Assessment & Plan Assessment & Plan (1) Essential hypertension: Code(s): I10 - Essential (primary) hypertension Category: Medical Plan: Well-controlled. Continue routine exercise, low-sodium diet and avoidance of caffeine. Continue current medications. (2) Pure hypercholesterolemia: Code(s): E78.00 - Pure hypercholesterolemia, unspecified Category: Medical Plan: Continue rosuvastatin. Recommended Mediterranean diet. (3) Vitamin D deficiency: Code(s): E55.9 - Vitamin D deficiency, unspecified Category: Medical Plan: Per HPI declines bone density test. Continue vitamin d. (4) Heart murmur: Code(s): R01.1 - Cardiac murmur, unspecified Category: Medical Plan: Per HPI declines echocardiogram. Monitor. Plan Follow up in 6 months for a physical. Medications: Refilled rosuvastatin 10 mg PO DAILY 90 tabs 3RF lisinopril 40 mg PO DAILY 90 tabs 3RF 90 days amlodipine 5 mg PO DAILY 90 tabs 3RF 90 days
[2025-08-14 15:36] VITALS: BP 130/70; PULSE 62; RESP 15; TEMP 36.6; O2SAT 96; BMI 24.3
== END 2025-08-14 16:06 | disposition home or self-care (01) ==
LOC: HO.HMCFM 15:18
PROVIDERS: PCP Physician Assistant Medical; Visit Provider Physician Assistant Medical
DX: I10 Essential (primary) hypertension (principal); E78.00 Pure hypercholesterolemia, unspecified; E55.9 Vitamin D deficiency, unspecified; R01.1 Cardiac murmur, unspecified

== ENCOUNTER → 2025-08-14 15:17 | Outpatient (BNVA) | payer MEDICARE, SELFPAY | PROVIDERS: PCP Physician Assistant Medical; Visit Provider Physician Assistant Medical | DX: I10 Essential (primary) hypertension (principal); E78.00 Pure hypercholesterolemia, unspecified; E55.9 Vitamin D deficiency, unspecified; R01.1 Cardiac murmur, unspecified | CPT/HCPCS: 99212 ==